=== PATIENT | female | born 1930 | race Caucasian/White ===

== ENCOUNTER 2016-10-16 18:39 | Inpatient (IN) | payer MEDICARE, OTHER ==
[~2016-10-16] VITALS: Ht 160 cm; Wt 57.6 kg
[2016-10-16] MEDS ORDERED: LORA0.5T2 PO (19:01)
[2016-10-16] MEDS ORDERED: DONE5TAB PO (19:01)
[2016-10-16] MEDS ORDERED: DORZ210OS OP (19:01)
[2016-10-16] MEDS ORDERED: NAPR220C15 PO (19:01)
[2016-10-16] MEDS ORDERED: VENL-193 PO (19:01)
[2016-10-16] MEDS ORDERED: BRIM15OS OU (19:01)
[2016-10-16] MEDS ORDERED: BIMA12.5OS OU (19:01)
[2016-10-16 19:28] LABS: APPEARANCE,URINE CLOUDY (CLEAR); GLUCOSE, URINE (UA) NEGATIVE (NEGATIVE); KETONES,URINE NEGATIVE (NEGATIVE); LEUKOCYTE ESTERASE ,URINE MODERATE (NEGATIVE); OCCULT BLOOD,URINE NEGATIVE (NEGATIVE); PROTEIN,URINE NEGATIVE (NEGATIVE)
[2016-10-16 19:41] LABS: ADD UA MICROSCOPIC YES
[2016-10-16 19:43] LABS: BASOPHILS % (AUTO) 0.2 % (0.0-2.0); HEMATOCRIT 38.3 % (36-46); HEMOGLOBIN 12.6 g/dL (12.0-16.0); LYMPHOCYTES # (AUTO) 1.1 K/uL (1.0-4.8); LYMPHOCYTES % (AUTO) 13.6 % (22.0-44.0); MEAN CORPUSCULAR HEMOGLOBIN 31.2 pg (26.0-34.0); MEAN CORPUSCULAR VOLUME 95 fL (80-100); MONOCYTES # (AUTO) 0.2 K/uL (0.1-1.0); MONOCYTES % (AUTO) 3.1 % (2.0-9.0); NEUTROPHILS # (AUTO) 6.4 K/uL (1.8-7.7); NEUTROPHILS % (AUTO) 82.1 % (40.0-70.0); PLATELET COUNT (AUTO) 247 K/uL (150-450); RED BLOOD CELL COUNT(AUTO) 4.05 MIL/uL (4.00-5.20); RED CELL DISTRIBUTION WIDTH 13.7 % (11.5-14.5); WHITE BLOOD COUNT (AUTO) 7.8 K/uL (4.5-11.0)
[2016-10-16 19:48] LABS: SQUAMOUS EPITHELIAL CELL,UR Moderate /LPF (None Seen)
[2016-10-16 19:50] LABS: RBC,URINE None Seen /HPF (0-2)
[2016-10-16 19:56] LABS: ANION GAP 13 mmol/L (8-16); CALCIUM, TOTAL 8.9 mg/dL (8.8-10.5); CARBON DIOXIDE 21 mmol/L (22-29); CHLORIDE 108 mmol/L (98-107); CREATININE 0.97 mg/dL (0.60-1.30); GLOMERULAR FILTR. RATE CALC 54 mL/min (>60); POTASSIUM 3.9 mmol/L (3.5-5.1); SODIUM SERUM 142 mmol/L (136-145); UREA NITROGEN, BLOOD 18 mg/dL (7-18)
[2016-10-16 20:02] LABS: ALANINE AMINOTRANSFERASE 18 U/L (12-78); ALBUMIN 3.6 g/dL (3.4-5.0); ASPARTATE AMINOTRANSFERASE 10 U/L (15-37); BILIRUBIN,TOTAL 0.4 mg/dL (0.1-1.0); TOTAL PROTEIN, SERUM 7.2 g/dL (6.4-8.2)
[2016-10-16 20:04] LABS: B-TYPE NATRIURETIC PEPTIDE 8 pg/mL (0-100)
[2016-10-16 20:11] LABS: LACTIC ACID 2.5 mmol/L (0.4-2.0)
[2016-10-16 20:12] LABS: TROPONIN I < 0.02 ng/mL (0.00-0.05)
[2016-10-16] MEDS ORDERED: SODIUM CHLORIDE 0.9% 1,000 ML IV ONE (20:15)
[2016-10-16 20:20] LABS: AMMONIA 13 umol/L (11-32)
[2016-10-16 20:43] LABS: APPEARANCE,URINE TURBID (CLEAR); GLUCOSE, URINE (UA) NEGATIVE (NEGATIVE); KETONES,URINE NEGATIVE (NEGATIVE); LEUKOCYTE ESTERASE ,URINE MODERATE (NEGATIVE); OCCULT BLOOD,URINE NEGATIVE (NEGATIVE); PROTEIN,URINE NEGATIVE (NEGATIVE)
[2016-10-16 20:55] LABS: SQUAMOUS EPITHELIAL CELL,UR Moderate /LPF (None Seen)
[2016-10-16] MEDS ORDERED: 0.9% SODIUM CHLORIDE 10 ML SYRINGE IVP PRN (21:00)
[2016-10-16] MEDS ORDERED: ACETAMINOPHEN 325 MG TABLET PO PRN (21:00)
[2016-10-16] MEDS ORDERED: ONDANSETRON HCL 4 MG/2 ML VIAL IVP PRN (21:00)
[2016-10-16 21:10] LABS: AMORPHOUS SEDIMENT,UR Few /LPF (None Seen); RBC,URINE 0-2 /HPF (0-2)
[2016-10-16 21:37] LABS: REFLEX LACTIC ACID? YES YES
[2016-10-16 22:37] VITALS: BP 141/85
[2016-10-17] VITALS (7 sets, daily range): BP systolic 110–150; BP diastolic 62–84
[2016-10-17] MEDS ORDERED: ONDANSETRON HCL 4 MG/2 ML VIAL IVP PRN (01:15)
[2016-10-17] MEDS ORDERED: 0.9% SODIUM CHLORIDE 10 ML SYRINGE IVP PRN (01:15)
[2016-10-17] MEDS ORDERED: OxyCODONE HCL/ACETAMINOPHEN 5-325 MG TABLET PO PRN ×2 (01:15)
[2016-10-17] MEDS ORDERED: MAGNESIUM HYDROXIDE SUSPENSION 30 ML UDCUP PO PRN (01:15)
[2016-10-17] MEDS ORDERED: ACETAMINOPHEN 325 MG TABLET PO PRN (01:15)
[2016-10-17] MEDS ORDERED: INFLUENZA VIRUS VACCINE QVS 2016-17 (3YR+)/PF 60 MCG/0.5 ML SYRINGE IM ONE (04:00)
[2016-10-17] MEDS ORDERED: LORazepam 0.5 MG TABLET PO PRN (04:00)
[2016-10-17] MEDS: DORZOLAMIDE HCL 2% 10 ML OPHTHALMIC SOLUTION OU SCH ×3 (07:59→20:01)
[2016-10-17] MEDS: DOCUSATE SODIUM 100 MG CAPSULE PO SCH ×2 (07:59→20:00)
[2016-10-17] MEDS: VENLAFAXINE HCL 75 MG TABLET PO SCH ×4 (07:59→20:00)
[2016-10-17] MEDS: ASPIRIN 325 MG TABLET PO SCH (07:59)
[2016-10-17] MEDS: BRIMONIDINE TARTRATE 0.1% 5 ML OPHTHALMIC SOLUTION OU SCH ×3 (07:59→20:01)
[2016-10-17] MEDS: DONEPEZIL HCL 5 MG TABLET PO SCH ×4 (07:59→20:00)
[2016-10-17] MEDS: PANTOPRAZOLE SODIUM 40 MG/VIAL IVP SCH (08:29)
[2016-10-17] MEDS ORDERED: SODIUM CHLORIDE 0.9% 250 ML IV ONE (10:39)
[2016-10-17] MEDS: LEVOFLOXACIN 500 MG/D5% WATER 100 ML IV SCH (11:14)
[2016-10-17] MEDS: BIMATOPROST 0.01% 2.5 ML OPHTHALMIC SOLUTION OU SCH (20:01)
[2016-10-18 04:43] VITALS: BP 136/78
[2016-10-18 07:40] LABS: BASOPHILS # (AUTO) 0.02 K/uL (0.00-0.20); BASOPHILS % (AUTO) 0.3 % (0.0-2.0); EOSINOPHILS % (AUTO) 3.52 % (1.0-6.0); HEMATOCRIT 36.1 % (36-46); HEMOGLOBIN 12.1 g/dL (12.0-16.0); LYMPHOCYTES # (AUTO) 1.3 K/uL (1.0-4.8); LYMPHOCYTES % (AUTO) 23.3 % (22.0-44.0); MEAN CORPUSCULAR HEMOGLOBIN 31.5 pg (26.0-34.0); MEAN CORPUSCULAR HGB CONC 33.4 G/dL (31.0-37.0); MEAN CORPUSCULAR VOLUME 95 fL (80-100); MONOCYTES # (AUTO) 0.5 K/uL (0.1-1.0); MONOCYTES % (AUTO) 8.3 % (2.0-9.0); NEUTROPHILS # (AUTO) 3.7 K/uL (1.8-7.7); NEUTROPHILS % (AUTO) 64.7 % (40.0-70.0); PLATELET COUNT (AUTO) 225 K/uL (150-450); RED BLOOD CELL COUNT(AUTO) 3.82 MIL/uL (4.00-5.20); WHITE BLOOD COUNT (AUTO) 5.7 K/uL (4.5-11.0)
[2016-10-18 08:00] LABS: ANION GAP 13 mmol/L (8-16); CALCIUM, TOTAL 8.7 mg/dL (8.8-10.5); CARBON DIOXIDE 22 mmol/L (22-29); CHLORIDE 107 mmol/L (98-107); CREATININE 0.77 mg/dL (0.60-1.30); GLOMERULAR FILTR. RATE CALC > 60 mL/min (>60); POTASSIUM 3.6 mmol/L (3.5-5.1); SODIUM SERUM 142 mmol/L (136-145); UREA NITROGEN, BLOOD 13 mg/dL (7-18)
[2016-10-18 08:22] VITALS: BP 111/80
[2016-10-18] MEDS: DONEPEZIL HCL 5 MG TABLET PO SCH ×4 (08:33→21:10)
[2016-10-18] MEDS: VENLAFAXINE HCL 75 MG TABLET PO SCH ×4 (08:33→21:10)
[2016-10-18] MEDS: ASPIRIN 325 MG TABLET PO SCH (08:33)
[2016-10-18] MEDS: DOCUSATE SODIUM 100 MG CAPSULE PO SCH ×2 (08:33→21:10)
[2016-10-18] MEDS: DORZOLAMIDE HCL 2% 10 ML OPHTHALMIC SOLUTION OU SCH ×3 (08:34→21:10)
[2016-10-18] MEDS: BRIMONIDINE TARTRATE 0.1% 5 ML OPHTHALMIC SOLUTION OU SCH ×3 (08:34→21:10)
[2016-10-18] MEDS: LEVOFLOXACIN 500 MG/D5% WATER 100 ML IV SCH (11:41)
[2016-10-18] MEDS: PANTOPRAZOLE SODIUM 40 MG/VIAL IVP SCH (11:41)
[2016-10-18 12:16] VITALS: BP 97/67
[2016-10-18 16:02] VITALS: BP 104/68
[2016-10-18 20:02] VITALS: BP 112/68
[2016-10-18] MEDS: BIMATOPROST 0.01% 2.5 ML OPHTHALMIC SOLUTION OU SCH (21:10)
[2016-10-18 23:52] VITALS: BP 106/69
[2016-10-19 04:37] VITALS: BP 102/85
[2016-10-19 07:29] VITALS: BP 116/61
[2016-10-19 09:04] LABS: BASOPHILS % (AUTO) 0.4 % (0.0-2.0); EOSINOPHILS % (AUTO) 3.5 % (1.0-6.0); HEMATOCRIT 39.9 % (36-46); LYMPHOCYTES # (AUTO) 1.3 K/uL (1.0-4.8); LYMPHOCYTES % (AUTO) 21.4 % (22.0-44.0); MEAN CORPUSCULAR HGB CONC 32.7 G/dL (31.0-37.0); MEAN CORPUSCULAR VOLUME 95 fL (80-100); MONOCYTES # (AUTO) 0.4 K/uL (0.1-1.0); MONOCYTES % (AUTO) 7.3 % (2.0-9.0); NEUTROPHILS # (AUTO) 4.1 K/uL (1.8-7.7); NEUTROPHILS % (AUTO) 67.4 % (40.0-70.0); PLATELET COUNT (AUTO) 260 K/uL (150-450); RED CELL DISTRIBUTION WIDTH 13.4 % (11.5-14.5); WHITE BLOOD COUNT (AUTO) 6.1 K/uL (4.5-11.0)
[2016-10-19 09:32] LABS: CALCIUM, TOTAL 8.8 mg/dL (8.8-10.5); CREATININE 0.96 mg/dL (0.60-1.30); POTASSIUM 3.6 mmol/L (3.5-5.1)
[2016-10-19] MEDS: DONEPEZIL HCL 5 MG TABLET PO SCH ×3 (09:52→15:50)
[2016-10-19] MEDS: LEVOFLOXACIN 500 MG/D5% WATER 100 ML IV SCH (09:52)
[2016-10-19] MEDS: ASPIRIN 325 MG TABLET PO SCH (09:52)
[2016-10-19] MEDS: PANTOPRAZOLE SODIUM 40 MG/VIAL IVP SCH (09:52)
[2016-10-19] MEDS: VENLAFAXINE HCL 75 MG TABLET PO SCH ×3 (09:52→15:50)
[2016-10-19] MEDS: DOCUSATE SODIUM 100 MG CAPSULE PO SCH (09:52)
[2016-10-19] MEDS: BRIMONIDINE TARTRATE 0.1% 5 ML OPHTHALMIC SOLUTION OU SCH ×2 (09:53→15:50)
[2016-10-19] MEDS: DORZOLAMIDE HCL 2% 10 ML OPHTHALMIC SOLUTION OU SCH ×2 (09:53→15:50)
[2016-10-19 11:32] VITALS: BP 100/68
[2016-10-19] MEDS ORDERED: LEVO500 PO (15:40)
[2016-10-19 15:49] VITALS: BP 100/64
== END 2016-10-19 16:40 | disposition home or self-care (01) | DRG 69 ==
LOC: EMS 18:43 → 5S 21:24
PROVIDERS: ADMIT Internal Medicine; ATTEND Internal Medicine
DX: G45.9 Transient cerebral ischemic attack, unspecified (principal); N39.0 Urinary tract infection, site not specified; F02.80 Dementia in other diseases classified elsewhere, unspecified severity, without behavioral disturbance, psychotic disturbance, mood disturbance, and anxiety; G30.9 Alzheimer's disease, unspecified; H40.9 Unspecified glaucoma; Z87.440 Personal history of urinary (tract) infections; Z88.0 Allergy status to penicillin; Z79.899 Other long term (current) drug therapy
CPT/HCPCS: 51701; 70450; 83605; 87040; 87086; 93005; 93880; 96361; 97161; 99285; C9113; J1956; J7030; J7050